=== PATIENT | male | born 1985 | race Caucasian/White ===

== ENCOUNTER 2017-08-12 20:18 | Emergency (ER) | payer MEDICAID ==
[2017-08-12] MEDS ORDERED: OXYCODONE-ACETAMINOPHEN 5-325 MG TABLET PO ONE (21:27)
--- NOTE | 2017-08-12 21:29 | ER Document Report ---
ED Medical Screen (RME) - General Chief Complaint: Testicular Pain Stated Complaint: TESTICULAR PAIN Time Seen by Provider: 08/12/17 21:21 Mode of Arrival: Ambulatory Information source: Patient Notes: Patient is a 31-year-old male who presents to the ER today for multiple months of left testicular pain with one lump that he has felt. Patient states that it hurts constantly, sometimes will send a sharp pain up into the left lower abdomen. He denies any burning with urination, abnormal discharge. He has seen urgent care last weekend for this who advised that he get an ultrasound to rule out cancer versus hernia etc. He denies any fevers or chills. TRAVEL OUTSIDE OF THE [place] IN LAST 30 DAYS: No - Related Data Allergies/Adverse Reactions: No Known Allergies Allergy (Verified 09/18/16 15:06) Past Medical History - General Information source: Patient Renal/ Medical History: Denies: Hx Peritoneal Dialysis Review of Systems - Review of Systems Male Genitourinary: See HPI Physical Exam - Notes Notes: PHYSICAL EXAMINATION: GENERAL: Well-appearing and in no acute distress.
--- NOTE | 2017-08-12 22:24 | RADIOLOGY REPORT (SQ) ---
EXAM DESCRIPTION: U/S SCROTUM W/DOPPLER COMPLETED DATE/TIME: 08/12/2017 10:14 pm REASON FOR STUDY: testicular pain COMPARISON: None. TECHNIQUE: Static and realtime reynolds scale imaging of the scrotum and testes. Selected color Doppler and spectral images recorded to document blood flow. LIMITATIONS: None. FINDINGS: RIGHT: TESTICLE: Normal size. Normal echotexture. Normal blood flow. No mass. EPIDIDYMIS: Normal. HYDROCELE OR VARICOCELE: There is a small right hydrocele. HERNIA OR EXTRA-TESTICULAR MASS: No. OTHER: No other significant finding. LEFT: TESTICLE: Normal size. Normal echotexture. Normal blood flow. No mass. EPIDIDYMIS: There are small left epididymal cysts. HYDROCELE OR VARICOCELE: No. HERNIA OR EXTRA-TESTICULAR MASS: No. OTHER: No other significant finding. IMPRESSION: Small right hydrocele. No evidence of torsion. TECHNICAL DOCUMENTATION: JOB ID: [id number] [employer]- All Rights Reserved
[2017-08-12 23:11] LABS: APPEARANCE,URINE CLEAR; BILIRUBIN,URINE NEGATIVE (NEGATIVE); GLUCOSE, URINE NEGATIVE (NEGATIVE); KETONES,URINE NEGATIVE (NEGATIVE); LEUKOCYTE ESTERASE,URINE NEGATIVE (NEGATIVE); NITRITE,URINE NEGATIVE (NEGATIVE); PROTEIN,URINE NEGATIVE (NEGATIVE); URINE SPECIFIC GRAVITY 1.002; UROBILINOGEN,URINE NEGATIVE mg/dL (<2.0)
[2017-08-13 00:38] LABS: CHLAM PCR NOT DETECTED (NOT DETECT)
--- NOTE | 2017-08-13 00:50 | ER Document Report ---
ED General - General Chief Complaint: Testicular Pain Stated Complaint: TESTICULAR PAIN Time Seen by Provider: 08/12/17 21:21 Mode of Arrival: Ambulatory Notes: Patient is a 31-year-old male presents with complaint of pain in his left inguinal area that radiates into his left testicle that has been there for several months. He has not seen a doctor about it because he has been very busy with work. 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 He says he is constantly wearing the harness that does put pressure over that area. He says he has not noticed a small bump on his testicle. He went to urgent care and they told to come to the ER to have an ultrasound performed of his testicle. Denies any difficulty urinating. Denies any fevers. No infections. No other complaints at this time. TRAVEL OUTSIDE OF THE [place] IN LAST 30 DAYS: No - Related Data Allergies/Adverse Reactions: No Known Allergies Allergy (Verified 09/18/16 15:06) Past Medical History - General Information source: Patient - Social History Smoking Status: Never Smoker Chew tobacco use (# tins/day): Yes Frequency of alcohol use: None Family History: Reviewed & Not Pertinent Patient has suicidal ideation: No Patient has homicidal ideation: No Renal/ Medical History: Denies: Hx Peritoneal Dialysis Review of Systems - Review of Systems Notes: My Normal Review Basic REVIEW OF SYSTEMS: CONSTITUTIONAL : Denies fever, chills, or sweats. Denies recent illness. RESPIRATORY: Denies cough, cold, or chest congestion. Denies shortness of breath, difficulty breathing, or wheezing. GASTROINTESTINAL: Pain in left lower abdomen and left inguinal area. Denies nausea, vomiting, or diarrhea. Denies constipation. Last BM: GENITOURINARY: Denies difficulty urinating, painful urination, burning, frequency, or blood in urine. Left inguinal and testicle pain. MUSCULOSKELETAL: Denies neck or back pain or joint pain or swelling. SKIN: Denies rash or skin lesions. NEUROLOGICAL: Denies altered mental status or loss of consciousness. Denies headache. Denies weakness or paralysis or loss of use of either side. Denies problems with gait or speech. Denies sensory or motor loss. ALL OTHER SYSTEMS REVIEWED AND NEGATIVE. Physical Exam - Vital signs Vitals: Pulse Resp BP Pulse Ox 78 18 121/91 H 98 08/13/17 02:45 08/13/17 02:45 08/13/17 02:45 08/13/17 02:45 - Notes Notes: General Appearance: Well nourished, alert, cooperative, no acute distress, no obvious discomfort. Well-appearing. Vitals: reviewed, See vital signs table. Head: no swelling or tenderness to the head Eyes: PERRL, EOMI, Conjuctiva clearegaly Lungs: No wheezing, No rales, No rhonci, No accessory muscle use, good air exchange bilaterally. Heart: Normal rate, Regular rythm, No murmur, no rub Abdomen: Normal BS, soft, No rigidity, patient does have pain to palpation in the left inguinal area. I do not feel any lumps or bumps or hernia. Genital: Patient has no pain to palpation of the testicles themselves. Patient complains of there being 2 small knots in the testicle. I cannot find them myself. It takes him a long time to find 1 of the notes that he is talking about. Feels as if the knot is or just outside the testicle inside the scrotal sac. Do not feel any obvious masses on test to crackles on exam. I do not feel hernia on examination of the scrotal area. Extremities: strength 5/5 in all extremities, good pulses in all extremities, no swelling or tenderness in the extremities, no edema. Skin: warm, dry, appropriate color, no rash Neuro: speech clear, oriented x 3, normal affect, responds appropriately to questions. Course - Re-evaluation Re-evalutation: 08/13/17 06:29 The exact cause of the patient's left inguinal pain and left testicular pain is 100% clear. On his exam of his left testicle or not 100% convinced that this is a mass in the testicle. It is very small pneumocephalus as if it is within the seminal vesicle on palpation. It is barely palpable. An ultrasound did not see any concerning findings. She does have pain to palpation along the inguinal canal. CT scan did not show evidence of hernia. 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 Nonetheless, I still think it is appropriate for him to follow-up with a urologist due to his ongoing testicular pain. Did give him referral to urology. I encouraged him return to ER if he has worsening pain, fevers, swelling in the inguinal area, testicular swelling, or if he feels unwell. Patient agrees with plan will be discharged home. Dictation of this chart was performed using voice recognition software; therefore, there may be some unintended grammatical errors. - Vital Signs Vital signs: Temp Pulse Resp BP Pulse Ox 78 18 121/91 H 98 08/13/17 02:45 08/13/17 02:45 08/13/17 02:45 08/13/17 02:45 Discharge - Discharge Clinical Impression: Testicular pain, left Inguinal pain Qualifiers: Laterality: left Qualified Code(s): R10.32 - Left lower quadrant pain Condition: Good Disposition: HOME, SELF-CARE Additional Instructions: Please return to the ER immediately if you develop swelling, fevers, or feel unwell. Please follow up with the urologist for reevaluation of the lump on your testicle and your testicle pain. The exact cause for your pain is not 100% clear. It could be potentially related to an inguinal strain. Please stay out of work for one more week to rest this are. Forms: Return to Work Referrals: CLINTON FAJARDO MD [NO LOCAL MD] - Follow up in 3-5 days
--- NOTE | 2017-08-13 01:48 | RADIOLOGY REPORT (SQ) ---
EXAM DESCRIPTION: CT ABD/PELVIS NO ORAL OR IV COMPLETED DATE/TIME: 08/13/2017 12:57 am REASON FOR STUDY: left inguinal pain COMPARISON: None. TECHNIQUE: CT scan of the abdomen and pelvis performed without intravenous or oral contrast. Images reviewed with lung, soft tissue, and bone windows. Reconstructed coronal and sagittal MPR images revi ewed. All images stored on PACS. All CT scanners at this facility use dose modulation, iterative reconstruction, and/or weight based d osing when appropriate to reduce radiation dose to as low as reasonably achievable (ALARA). [facility]: Dose Right [facility]: CareDose [facility]: Dose Right [facility]: Teradose 4D [facility]: [employer] RADIATION DOSE: Up-to-date CT equipment and radiation dose reduction techniques were employed. CTDIv ol: 10.7 mGy. DLP: 681 mGy-cm.mGy. LIMITATIONS: None. FINDINGS: LOWER CHEST: No significant findings. No nodules or infiltrates. NON-CONTRASTED LIVER, SPLEEN, ADRENALS: Evaluation limited by lack of IV contrast. No identified sign ificant masses. Moderate hepatic steatosis. PANCREAS: No masses. No peripancreatic inflammatory changes. GALLBLADDER: No identified stones by CT criteria. No inflammatory changes to suggest cholecystitis. RIGHT KIDNEY AND URETER: No suspicious masses. Assessment limited by lack of IV contrast. No signif icant calcifications. No hydronephrosis or hydroureter. LEFT KIDNEY AND URETER: No suspicious masses. Assessment limited by lack of IV contrast. No signifi cant calcifications. No hydronephrosis or hydroureter. AORTA AND RETROPERITONEUM: No aneurysm. No retroperitoneal masses or adenopathy. BOWEL AND PERITONEAL CAVITY: No obvious masses or inflammatory changes. No free fluid. APPENDIX: No evidence of appendicitis. PELVIS, BLADDER, AND ABDOMINAL WALL:No abnormal masses. No free fluid. Moderate diffuse prominence o f the urinary go wall ; bladder is nondistended. Left inguinal region appears unremarkable, as queri ed. BONES: Small L5-S1 disc bulge. OTHER: No other significant finding. IMPRESSION: No acute findings. COMMENT: Quality ID # [id number]: Final reports with documentation of one or more dose reduction techniques (e.g., Automated exposure control, adjustment of the mA and/or kV according to patient size, use of iterative reconstruction technique) TECHNICAL DOCUMENTATION: JOB ID: [id number]- All Rights Reserved
[2017-08-13 02:47] VITALS: BP 121/91
== END 2017-08-13 02:45 | disposition home or self-care (01) ==
LOC: ER 20:18
DX: N50.812 Left testicular pain (principal); R10.32 Left lower quadrant pain
CPT/HCPCS: 74176; 76870; 81001; 87491; 87591; 93976; 99284

== ENCOUNTER 2018-07-25 09:42 | Emergency (ER) | payer SELFPAY ==
--- NOTE | 2018-07-25 10:26 | ER Document Report ---
HPI - HPI Patient complains to provider of: Lateral left foot pain Onset: Last week Onset/Duration: Gradual, Persistent Pain Level: 5 Context: 32-year-old male complaining of lateral left foot pain without injury for 1 week. He states he did not get it seen because his been busy at work and at [employer]. Associated Symptoms: None Exacerbated by: Walking Relieved by: Denies Similar symptoms previously: No Recently seen / treated by doctor: No - ROS ROS below otherwise negative: Yes Systems Reviewed and Negative: Yes All other systems reviewed and negative - MUSCULOSKELETAL Musculoskeletal: REPORTS: Extremity pain Past Medical History - General Information source: Patient - Social History Smoking Status: Current Some Day Smoker Frequency of alcohol use: None Drug Abuse: None Family History: Reviewed & Not Pertinent Patient has suicidal ideation: No Patient has homicidal ideation: No - Medical History Medical History: Negative Renal/ Medical History: Denies: Hx Peritoneal Dialysis Surgical Hx: Negative Vertical Provider Document - CONSTITUTIONAL Agree With Documented VS: Yes - INFECTION CONTROL TRAVEL OUTSIDE OF THE [place] IN LAST 30 DAYS: No - MUSCULOSKELETAL/EXTREMETIES Musculoskeletal/Extremeties: MAEW, FROM, Tender - Dorsal lateral left foot and lateral plantar surface, no grecia deformity. negative: Edema, Eccymosis - NEURO Level of Consciousness: Awake - DERM Integumentary: No Rash Course - Re-evaluation Re-evalutation: 07/25/18 11:16 Foot x-ray is negative per radiologist will treat with Motrin and Tylenol and Ascencion bandage - Vital Signs Vital signs: Temp Pulse Resp BP Pulse Ox 97.7 F 64 16 125/77 100 07/25/18 09:47 07/25/18 09:47 07/25/18 09:47 07/25/18 09:47 07/25/18 09:47 Procedures - Immobilization Left Foot Time completed: 11:20 Pre-Proc Neuro Vasc Exam: Normal Immobilizer type: Ascencion wrap Performed by: PCT Post-Proc Neuro Vasc Exam: Normal Alignment checked and good: Yes Discharge - Discharge Clinical Impression: Left foot pain Condition: Good Disposition: HOME, SELF-CARE Instructions: Ascencion Wrap ([facility]), Acetaminophen, Ibuprofen (General) ([facility]), Sprain ([facility]) Additional Instructions: Ascencion wrap for comfort Motrin up to 800 mg 3 times a day for inflammation Tylenol up to 4000 mg per day for pain See the 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
--- NOTE | 2018-07-25 11:16 | RADIOLOGY REPORT (SQ) ---
EXAM DESCRIPTION: FOOT LEFT COMPLETE COMPLETED DATE/TIME: 07/25/2018 10:56 am REASON FOR STUDY: pain COMPARISON: None. NUMBER OF VIEWS: Three views. TECHNIQUE: AP, lateral and oblique radiographic images acquired of the left foot. LIMITATIONS: None. FINDINGS: MINERALIZATION: Normal. BONES: No acute fracture or dislocation. No worrisome bone lesions. JOINTS: No effusions. SOFT TISSUES: No soft tissue swelling. No foreign body. OTHER: No other significant finding. IMPRESSION: NEGATIVE STUDY OF THE LEFT FOOT. NO RADIOGRAPHIC EVIDENCE OF ACUTE INJURY. TECHNICAL DOCUMENTATION: JOB ID: [id number] [employer]- All Rights Reserved Reading location - IP/workstation name: [email or web address]
[2018-07-25 11:28] VITALS: BP 127/72
== END 2018-07-25 11:28 | disposition home or self-care (01) ==
LOC: ER 09:42
DX: M79.672 Pain in left foot (principal); F17.200 Nicotine dependence, unspecified, uncomplicated
CPT/HCPCS: 99283